=== PATIENT | female | born 1955 | race Caucasian/White ===

== ENCOUNTER → 2018-03-18 | Outpatient (CLI) | payer MEDICARE, OTHER | END | disposition home or self-care (01) | LOC: PCVCCLINIC 11:05 | PROVIDERS: ATTEND Internal Medicine | DX: I48.0 Paroxysmal atrial fibrillation (principal); I10 Essential (primary) hypertension; E78.5 Hyperlipidemia, unspecified; G47.33 Obstructive sleep apnea (adult) (pediatric); R73.02 Impaired glucose tolerance (oral); Z79.899 Other long term (current) drug therapy | CPT/HCPCS: 80061; 93005; G0463 ==

== ENCOUNTER → 2018-07-17 | Outpatient (CLI) | payer MEDICARE, OTHER ==
--- NOTE | 2018-07-17 17:31 | PCVCIMAG ---
APPROVED REPORT Study performed: 07/17/2018 13:51:02 Exam: Stress Echocardiogram Indication: Atrial Fibrillation, Hypertension, Hyperlipidemia Patient Location: Echo lab Stress Nurse: Kathy Ervin RN Room #: 2 Status: routine Ht: 5 ft 7 in HR: 75 bpm BP: 162/102 mmHg Rhythm: NSR Medical History Medical History: Atrial Fibrillation, HTN, Hyperlipidemia Cardiac Risk Factors: HTN, Hyperlipidemia, [place], Previous Cardiac Procedures: none Pretest Chest Pain Characteristics: No chest pain Exercise History: Sedentary Procedure The patient underwent an Exercise Stress Test using the Jerome Protocol. Blood pressure, heart rate, and EKG were monitored. An Echocardiogram was performed by seed laboratory technician in four stages in quad fashion. At peak stress, four selected images were obtained and placed side by side with resting images for comparison. Stress Test Details Stress Test: Exercise stress testing was performed using a Jerome protocol. HR Resting HR: 78 bpmMax Heart Rate (APMHR): 155 bpm Max HR Achieved: 148 bpmTarget HR (85% APMHR): 131 bpm % of APMHR: 95 Recovery HR: 81 bpm HR response to stress: Normal HR response to stress BP Resting BP: 162/102 mmHg Max BP: 200/112 mmHg Recovery BP: 176/108 mmHg BP response to stress: Abnormal hypertensive response to stress. ECG Resting ECG: Sinus Rhythm nonspecific intraventricular conduction delay Stress ECG: Sinus Rhythm nonspecific intraventricular conduction delay ST Change: Normal Maximum ST Deviation: 0 mm Arrhythmia: occ PACs Recovery ECG: Sinus Rhythm nonspecific intraventricular conduction delay Recovery ST Change: Non-ischemic Recovery ST Deviation: 0 mm Recovery Arrhythmia: None Clinical Reason for Termination: Maximal effort Exercise duration: 6 min 00 sec Highest Stage Achieved: Stage 2: 2.5 mph at 12% grade. Exercise capacity: 7.2 METs Overall Exercise Capacity for Age: Poor Scale: Sedentary Angina Score: None No complications. Stress ECG Conclusion The patient exercised according to the JEROME protocol for 6:00 mins; achieving a work level of 7.2METS. The resting heart rate of 75 bpm antwan to a maximum heart rate of 148 bpm. This value represent 95% of the maximal, age-predicted heart rate. The resting blood pressure of 162/102 mmHg, antwan to a maximum blood pressure of 200/112mmHg. The exercise test was stopped due to fatigue. Ramos Treadmill Score is 6.0 which is Low risk. Pre-Stress Echo The resting Echocardiogram showed normal left ventricular contractility with an estimated Ejection Fraction of about 55-60%. Normal wall motion in all segments on baseline images. Post-Stress Echo The stress Echocardiogram showed normal left ventricular contractility with an estimated Ejection Fraction of about 65-70%. Normal augmentation of wall motion in all segments on post stress images. Clinical No clinical or ECG evidence for ischemia. Conclusion Clinical Response: Non-ischemic Exercise Capacity: Below Average Stress ECG Response: Non-ischemic Stress Echo Images: Non-ischemic No clinical, EKG or echocardiographic evidence for ischemia. No echocardiographic evidence for exercise induced ischemia. Normal stress echocardiogram with maximal exercise stress. <Conclusion> No clinical, EKG or echocardiographic evidence for ischemia. No echocardiographic evidence for exercise induced ischemia. Normal stress echocardiogram with maximal exercise stress.
== END | disposition home or self-care (01) ==
LOC: PCVCIMAG 13:52
PROVIDERS: ATTEND Internal Medicine
DX: I48.0 Paroxysmal atrial fibrillation (principal); E78.5 Hyperlipidemia, unspecified; R06.02 Shortness of breath; I10 Essential (primary) hypertension; G47.33 Obstructive sleep apnea (adult) (pediatric); R73.02 Impaired glucose tolerance (oral); E78.00 Pure hypercholesterolemia, unspecified
CPT/HCPCS: 93005; 93325; 93351; G0463